=== PATIENT | female | born 1950 | race Caucasian/White ===

== ENCOUNTER 2018-06-14 14:35 | Outpatient (CLI) | payer MEDICARE, BC ==
--- NOTE | 2018-06-19 18:22 | MMO ---
Bilateral MAMMO Bilat Screen [facility]. CLINICAL HISTORY: Patient is 67 years old and is seen for screening. The patient has no family history of breast cancer. The patient has no personal history of cancer. The patient has a history of Breast reduction in ABOUT 5 YRS AGO. VIEWS: The views performed were: bilateral craniocaudal with tomosynthesis and bilateral mediolateral oblique with tomosynthesis. FILMS COMPARED: The present examination has been compared to prior imaging studies performed at [facility] on 05/06/1998, 08/30/1998, 11/07/1999, 02/09/2003, 02/11/2003 and 05/15/2016, and at [facility] on 10/03/2000, 10/18/2001, 05/07/2002, 10/26/2008, 07/21/2010 and 10/23/2013. MAMMOGRAM FINDINGS: There are scattered fibroglandular densities. There are no suspicious masses, suspicious calcifications, or new areas of architectural distortion. IMPRESSION: THERE IS NO MAMMOGRAPHIC EVIDENCE OF MALIGNANCY. A ROUTINE FOLLOW-UP MAMMOGRAM IN 1 YEAR IS RECOMMENDED. THE RESULTS OF THIS EXAM WERE SENT TO THE PATIENT. ACR BI-RADS Category 1 - Negative MAMMOGRAPHY NOTE: 1. A negative mammogram report should not delay a biopsy if a dominant of clinically suspicious mass is present. 2. Approximately 10% to 15% of breast cancers are not detected by mammography. 3. Adenosis and dense breasts may obscure an underlying neoplasm.
== END 2018-06-14 14:36 | disposition home or self-care (01) ==
LOC: BICMAMMO 14:35
PROVIDERS: ATTEND Internal Medicine
DX: Z12.31 Encounter for screening mammogram for malignant neoplasm of breast (principal)
CPT/HCPCS: 77063; 77067

== ENCOUNTER 2020-05-27 15:57 | Outpatient (CLI) | payer MEDICARE, BC | END 2020-05-27 15:58 | disposition home or self-care (01) | LOC: BICRAD 15:57 | PROVIDERS: ATTEND Internal Medicine | DX: U07.1 COVID-19 (principal); R05 Cough | CPT/HCPCS: 71046 ==

== ENCOUNTER 2020-12-02 09:51 | Outpatient (CLI) | payer MEDICARE, BC | END 2020-12-02 09:52 | disposition home or self-care (01) | LOC: BICMAMMO 09:51 | PROVIDERS: ATTEND Internal Medicine | DX: Z12.31 Encounter for screening mammogram for malignant neoplasm of breast (principal); Z98.890 Other specified postprocedural states | CPT/HCPCS: 77063; 77067 ==

== ENCOUNTER 2022-06-19 12:00 | Outpatient (CLI) | payer MEDICARE, BC | END 2022-06-19 12:01 | disposition home or self-care (01) | LOC: BICULT 12:00 | PROVIDERS: ATTEND Internal Medicine | DX: N20.0 Calculus of kidney (principal); M54.9 Dorsalgia, unspecified; E78.5 Hyperlipidemia, unspecified; Z79.899 Other long term (current) drug therapy | CPT/HCPCS: 36415; 76770; 80053; 80061; 81003; 81015; 85025 ==